=== PATIENT | male | born 1975 ===

== ENCOUNTER → 2021-10-21 | Day surgery (SDC) | payer OTHER ==
[~2021-10-21] VITALS: Ht 172.7 cm; Wt 70.3 kg
[~2021-10-21] MED LIST: MOTRIN600 MG PO; OXYCODONE-ACET1 EAC1 PO
== END | disposition home or self-care (01) ==
LOC: FAS 06:20
DX: K02.9 Dental caries, unspecified (principal); K04.7 Periapical abscess without sinus; F41.9 Anxiety disorder, unspecified; K21.9 Gastro-esophageal reflux disease without esophagitis; Z88.5 Allergy status to narcotic agent
CPT/HCPCS: D7210; D7310; J1100; J1885; J2250; J2405; J2704; J3010; J7120